=== PATIENT | male | born 1965 | race Caucasian/White ===

== ENCOUNTER 2018-07-26 12:09 | Emergency (ER) | payer BC ==
[~2018-07-26] VITALS: Ht 180.3 cm; Wt 96.2 kg
[~2018-07-26 12:09] MED LIST: NO HOME MEDS
--- NOTE | 2018-07-26 13:08 | Diagnostic Imaging Report ---
EXAMINATION: CHEST SINGLE (NOT PORTABLE) INDICATION: Shortness of breath. COMPARISON: Chest radiograph 07/18/2018. FINDINGS: TUBES and LINES: None. LUNGS: Low lung volumes. There is no evidence of pneumonia or pulmonary edema. PLEURA: No pleural effusion or pneumothorax. HEART AND MEDIASTINUM: The cardiomediastinal silhouette is unremarkable. BONES AND SOFT TISSUES: No acute osseous lesion. Soft tissues are unremarkable. UPPER ABDOMEN: No free air under the diaphragm. IMPRESSION: No acute radiographic abnormality. Signed by: Dr. Jovan Canada MD on 07/26/2018 1:05 PM
[2018-07-26 14:01] LABS: EOSINOPHILS # (AUTO) 0.3 (0.0-0.4); EOSINOPHILS % 7.2 % (0.0-6.0); HEMATOCRIT 27.8 % (38.2-49.6); HEMOGLOBIN 9.3 g/dL (14.0-18.0); LYMPHOCYTES # (AUTO) 1.1 (1.0-3.2); LYMPHOCYTES % 25.5 % (18.0-39.1); MEAN CORPUSCULAR HEMOGLOBIN 32.1 pg (28-32); MEAN CORPUSCULAR HGB CONC 33.5 g/dL (31-35); MEAN CORPUSCULAR VOLUME 95.9 fL (81-99); MONOCYTES # (AUTO) 0.5 (0.2-0.8); NEUTROPHILS # (AUTO) 2.3 (2.1-6.9); NEUTROPHILS % 54.3 % (38.7-80.0); PLATELET COUNT 120 x10e3/uL (140-360); RED CELL DISTRIBUTION WIDTH 15.1 % (11.7-14.4)
[2018-07-26 14:15] LABS: INR 1.22; PROTHROMBIN TIME 16.5 seconds (11.9-14.5)
[2018-07-26 14:16] LABS: PARTIAL THROMBOPLASTIN TIME 35.4 seconds (23.8-35.5)
--- NOTE | 2018-07-26 14:19 | NUR ---
Telephone order obtained from Dr. Will Garduno for outpt paracentesis. Orders signed by . Taken to Radiology. Rad dept to follow up with pt to schedule procedures.
[2018-07-26 14:26] LABS: ALANINE AMINOTRANSFERASE 23 IU/L (0-55); ALBUMIN 2.5 g/dL (3.5-5.0); ALBUMIN/GLOBULIN RATIO 0.6 (0.8-2.0); ALKALINE PHOSPHATASE 98 IU/L (40-150); ANION GAP 12.6 mmol/L (8-16); BLOOD UREA NITROGEN 8 mg/dL (7-26); BUN/CREATININE RATIO 10 (6-25); CALCIUM 8.6 mg/dL (8.4-10.2); CARBON DIOXIDE 26 mmol/L (22-29); CHLORIDE 98 mmol/L (98-107); CREATININE, SERUM 0.84 mg/dL (0.72-1.25); EST GLOMERULAR FILTRATION RATE > 60 ML/MIN (60-); GLUCOSE 109 mg/dL (74-118); POTASSIUM 3.6 mmol/L (3.5-5.1); SODIUM 133 mmol/L (136-145)
[2018-07-26 15:16] VITALS: BP 134/87
== END 2018-07-26 15:25 | disposition home or self-care (01) ==
LOC: ER 12:09
DX: R10.84 Generalized abdominal pain (principal); R11.0 Nausea; K70.31 Alcoholic cirrhosis of liver with ascites; D64.9 Anemia, unspecified; F17.210 Nicotine dependence, cigarettes, uncomplicated
CPT/HCPCS: 36415; 71045; 80053; 82140; 85025; 85610; 85730; 99283

== ENCOUNTER → 2018-08-02 | Outpatient (CLI) | payer BC ==
[~2018-08-02] MED LIST changes: +ALBUMIN IV ONE; +FENTANYL CITRATE/PF 100MCG/2 ML INJ ONE; +MIDAZOLAM HCL 2 MG/2 ML VIAL ONE
--- NOTE | 2018-08-02 15:45 | Diagnostic Imaging Report ---
Date and Time: 08/02/2018 Procedure: 1. Ultrasound-guided paracentesis. 2. 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 The patient's heart rate and pulse oximetry were continuously monitored by the interventional radiology nurse. Blood pressure was monitored at 5 minute intervals. Total intraservice time for sedation: 40 minutes Additional Medications: Lidocaine 1% for local anesthesia Estimated blood loss: Less than 20 cc Blood products administered: None Specimens: 19,250 cc straw-colored ascitic fluid. Core biopsy specimens x3 Implants: None Condition at completion: Stable Disposition: PACU DISCUSSION: Informed consent for the procedure was obtained and documented in the medical record after discussion of risks and benefits. The patient was placed in the supine position on the sonographic table. The right side of the abdomen was prepped and draped in standard sterile fashion. 1% lidocaine was infiltrated into the skin and subcutaneous tissues tissues for local anesthesia. Then under continuous sonographic guidance a 5 [place] Yueh needle catheter was advanced into the peritoneal space with return of straw-colored fluid. Subsequently, a total of 16,000 cc straw-colored fluid were obtained at which point further drainage not be obtained through the existing catheter. Sonographic evaluation confirmed presence of additional perihepatic ascites. A second site was selected for paracentesis and the skin and subcutaneous tissues were again anesthetized with 1% lidocaine. A second Yueh catheter was then advanced into the peritoneal space in the perihepatic region and subsequently connected to vacuum bottle with evacuation of an additional 3250 cc straw-colored fluid for a total of 19,250 cc. Post procedure sonographic evaluation confirmed evacuation of the majority of ascites from the peritoneal cavity. Trace right perihepatic ascites persisted. Therefore, the decision was made to proceed with percutaneous biopsy by a subxiphoid approach to the left hepatic lobe. The subxiphoid region was prepped and draped in the standard sterile fashion. 1% lidocaine was infiltrated into the skin and subcutaneous tissues for local anesthesia. Then under continuous sonographic guidance a 16-gauge needle guide was advanced into the left hepatic lobe. Then a total of 3 core biopsy specimens were obtained coaxially using an 18-gauge, 2 cm throw core biopsy apparatus with customer service representative teacher sonographic images stored in the medical record. As the guide needle was removed a small amount of Gelfoam slurry was injected along the liver capsule for augmentation of hemostasis. A sterile dressing was applied. Post procedure sonographic evaluation of the left hepatic lobe showed no evidence of perihepatic hematoma. The patient tolerated the procedure well without immediate complication. FINDINGS: Large volume ascites. Nodular hepatic contour compatible with cirrhosis. IMPRESSION: Successful ultrasound-guided paracentesis followed by ultrasound-guided core needle biopsy of the left hepatic lobe without immediate complication. Signed by: Dr. Brian Nieto M.D. on 08/02/2018 3:42 PM
== END ==
LOC: US 09:23
PROVIDERS: ATTEND Internal Medicine Gastroenterology
DX: R18.8 Other ascites (principal); K74.60 Unspecified cirrhosis of liver
CPT/HCPCS: 47000; 49083; 76942; J2250; 88307; 99152

== ENCOUNTER → 2018-08-27 | Outpatient (CLI) | payer BC ==
[~2018-08-27] MED LIST changes: -ALBUMIN IV ONE; -FENTANYL CITRATE/PF 100MCG/2 ML INJ ONE; -MIDAZOLAM HCL 2 MG/2 ML VIAL ONE
[2018-08-27 12:58] LABS: INR 1.13; PROTHROMBIN TIME 15.5 seconds (11.9-14.5)
[2018-08-27 12:59] LABS: PARTIAL THROMBOPLASTIN TIME 37.8 seconds (23.8-35.5)
--- NOTE | 2018-08-27 14:27 | Diagnostic Imaging Report ---
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 Blood pressure was monitored at 5 minute intervals. Additional Medications: Lidocaine 1% for local anesthesia Estimated blood loss: Minimal Specimens: 6700 cc ascites Implants: None DISCUSSION: Informed consent was obtained and documented in the medical record. The right lower quadrant of the abdomen was prepped and draped in standard sterile fashion. 1% lidocaine was infiltrated into the skin and subcutaneous tissues for local anesthesia. Then under continuous sonographic guidance a 5 [place] Yueh needle catheter was advanced into the peritoneal space. The catheter was advanced off the needle and connected to vacuum bottle with evacuation of 6700 cc straw-colored fluid. The catheter was removed and a sterile dressing was applied. The patient tolerated the procedure well without immediate complication. FINDINGS: Moderate ascites IMPRESSION: Successful ultrasound-guided paracentesis with evacuation of 6700 cc straw-colored fluid. Signed by: Dr. Brian Nieto M.D. on 08/27/2018 2:24 PM
== END ==
LOC: US 11:59
PROVIDERS: ATTEND Internal Medicine Gastroenterology
DX: R18.8 Other ascites (principal); K74.69 Other cirrhosis of liver
CPT/HCPCS: 36415; 49083; 85049; 85610; 85730

== ENCOUNTER → 2018-10-18 | Outpatient (CLI) | payer BC ==
[~2018-10-18] MED LIST changes: +ALBUMIN 25% 12.5GM 50ML 200 ML IV ONE
[2018-10-18 09:46] LABS: PLATELET COUNT 129 x10e3/uL (140-360)
[2018-10-18 09:49] LABS: INR 1.11; PARTIAL THROMBOPLASTIN TIME 37.7 seconds (23.8-35.5); PROTHROMBIN TIME 14.8 seconds (11.9-14.5)
--- NOTE | 2018-10-18 11:18 | Diagnostic Imaging Report ---
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 Blood pressure was monitored at 5 minute intervals. Additional Medications: Lidocaine 1% for local anesthesia Estimated blood loss: Minimal Blood products administered: None Complications: No immediate Specimens: 6700 cc ascites Implants: None Condition at completion: Stable Disposition: Discharged home DISCUSSION: Informed consent was obtained and documented in the medical record. The right upper quadrant of the abdomen was prepped and draped in standard sterile fashion. 1% lidocaine was infiltrated into the skin and subcutaneous tissues for local anesthesia. Then under continuous sonographic guidance a 5 [place] Yueh needle catheter was advanced into the peritoneal space. The catheter was advanced off the needle and connected to vacuum bottle with evacuation of 6700 cc straw-colored fluid. The catheter was removed and a sterile dressing was applied. The patient tolerated the procedure well without immediate complication. FINDINGS: Moderate ascites IMPRESSION: Successful ultrasound-guided paracentesis with evacuation of 6700 cc straw-colored fluid. Specimen was submitted for laboratory analysis as requested by the referring clinical team. Signed by: Dr. Brian Nieto M.D. on 10/18/2018 11:15 AM
[2018-10-18 12:17] LABS: BASOPHILS % 0.8 % (0.0-1.0); EOSINOPHILS # (AUTO) 0.3 (0.0-0.4); EOSINOPHILS % 6.4 % (0.0-6.0); HEMATOCRIT 32.1 % (38.2-49.6); HEMOGLOBIN 10.5 g/dL (14.0-18.0); LYMPHOCYTES # (AUTO) 1.1 (1.0-3.2); LYMPHOCYTES % 28.9 % (18.0-39.1); MEAN CORPUSCULAR HEMOGLOBIN 30.3 pg (28-32); MEAN CORPUSCULAR HGB CONC 32.7 g/dL (31-35); MEAN CORPUSCULAR VOLUME 92.8 fL (81-99); MONOCYTES # (AUTO) 0.6 (0.2-0.8); MONOCYTES % 15.2 % (4.4-11.3); NEUTROPHILS # (AUTO) 1.9 (2.1-6.9); NEUTROPHILS % 48.7 % (38.7-80.0); RED BLOOD COUNT 3.46 x10e6/uL (4.3-5.7)
[2018-10-18 12:36] LABS: BODY FLUID APPEARANCE SL.CLOUDY; BODY FLUID COLOR YELLOW; BODY FLUID TYPE ASCITIES; RBC,BODY FLUID 38 cells/uL; WBC,BODY FLUID 92 cells/uL
[2018-10-18 13:12] LABS: LYMPHOCYTES,BODY FLUID 30 %; MONO/MACROPHG,BODY FLUID 29 %; NEUTROPHILS,BODY FLUID 9 %
[2018-10-18 13:13] LABS: OTHER CELLS,BODY FLUID 32 %
== END ==
LOC: US 09:00
PROVIDERS: ATTEND Legal Medicine
DX: R18.8 Other ascites (principal)
CPT/HCPCS: 36415; 49083; 85025; 85610; 85730; 87070; 87205; 88112; 88305; 89051